=== PATIENT | female | born 1965 | race Caucasian/White ===

== ENCOUNTER 2021-04-04 12:45 | Emergency (ER) | payer MEDICAID ==
[~2021-04-04] VITALS: Ht 157.5 cm; Wt 71.2 kg
[2021-04-04 12:55] VITALS: BP 146/76
--- NOTE | 2021-04-04 12:59 | NUR ---
PATIENT AMBULATED TO BED 12.
--- NOTE | 2021-04-04 13:15 | NUR ---
Patient being evaluated by DR ETIENNE at bedside.
[2021-04-04 13:49] LABS: BASOPHILS # (AUTO) 0.1 K/uL (0.00-0.22); BASOPHILS % (AUTO) 0.8 % (0.0-2.0); EOSINOPHILS # (AUTO) 0.3 K/uL (0-0.4); EOSINOPHILS % (AUTO) 3.5 % (0.0-4.0); HEMATOCRIT 42.3 % (36-48); HEMOGLOBIN 14.1 g/dL (12.0-16.0); LYMPHOCYTES # (AUTO) 2.1 K/uL (2.5-16.5); MEAN CORPUSCULAR HEMOGLOBIN 29 pg (27-31); MEAN CORPUSCULAR HGB CONC 33 g/dL (33-37); MEAN CORPUSCULAR VOLUME 87.8 fL (80-94); MONOCYTES # (AUTO) 0.5 K/uL (0.8-1.0); MONOCYTES % (AUTO) 6.1 % (1.7-9.3); NEUTROPHILS # (AUTO) 5.7 K/uL (1.8-7.7); NEUTROPHILS % (AUTO) 65.6 % (42.2-75.2); PLATELET COUNT (AUTO) 341 K/uL (140-450); RED BLOOD CELL COUNT(AUTO) 4.81 MIL/uL (4.20-5.40); RED CELL DISTRIBUTION WIDTH 14.6 % (11.6-13.7); WHITE BLOOD COUNT (AUTO) 8.6 K/uL (4.8-10.8)
[2021-04-04 14:32] LABS: ANION GAP 13.6 (8-16); CARBON DIOXIDE 24.7 mmol/L (21-32); CREATININE 0.6 mg/dL (0.6-1.3); MAGNESIUM 2.1 mg/dL (1.8-2.4); PHOSPHORUS 3.3 mg/dL (2.5-4.9); POTASSIUM 4.3 mmol/L (3.5-5.1); TOTAL BILIRUBIN 0.4 mg/dL (0.0-1.0)
--- NOTE | 2021-04-04 14:47 | NUR ---
55 Y/O F BIB SELF C/O BILATERAL HAND NUMBESS X 2 WEEKS, AND LEFT SIDED FACIAL NUMBNESS X TODAY. PT REPORTS DIARRHEA X 2 TODAY. PT REPORTS TAKING ASPIRIN THIS MORNING TO TREAT FACIAL NUMBNESS, REPORTS RELIEF AFTER ASPIRIN. PT DENIES ANY NUMBNESS OR PAIN AT THIS TIME, DENIES N/V, HEADACHE, DIZZINESS, FALLS, TRAUMA, AND SYNCOPE. PT IS A&O X 4, STEADY GAIT, ACTIVE BOWEL SOUNDS IN ALL 4 QUAD, EVEN AND UNLABORED BREATHING, DOES NOT APPEAR TO BE IN ANY DISTRESS. PMEDHX: CHOLYTIS, HTN, ESOPHAGITIS, HERNIA NKA
[2021-04-04 16:22] VITALS: BP 120/88
--- NOTE | 2021-04-04 16:23 | NUR ---
Patient discharged with v/s stable. Written and verbal after care instructions about parasthesia given and explained. Patient verbalized understanding. Ambulatory with steady gait. All questions addressed prior to discharge. Advised to follow up with PMD.
== END 2021-04-04 16:22 | disposition home or self-care (01) ==
LOC: MED 12:45
DX: R20.2 Paresthesia of skin (principal); R20.0 Anesthesia of skin; J45.909 Unspecified asthma, uncomplicated
CPT/HCPCS: 36415; 70450; 80053; 81002; 83690; 83735; 84100; 84484; 85025; 93005; 99285